=== PATIENT | male | born 1970 | race Caucasian/White ===

== ENCOUNTER 2021-03-20 07:03 | Day surgery (SDC) | payer BC ==
[2021-03-20] MEDS ORDERED: Ringers Lactate 1,000 ML IV ONE (07:06)
[2021-03-20] MEDS ORDERED: LIDOCAINE 1% MPF 5 ML VIAL ONE (07:34)
[2021-03-20] MEDS ORDERED: propofoL 200 MG/20 ML VIAL IV ONE (07:34)
--- NOTE | 2021-03-20 08:28 | ENDO RPT ---
[address], [address] COLONOSCOPY PROCEDURE REPORT EXAM DATE: 03/20/2021 PATIENT NAME: Peewee Foster MR #: [id number] BIRTHDATE: 1970 ATTENDING: Ion Moore DR STATUS: outpatient MARKETING ADMINISTRATIVE ASSISTANT: Bel De La Vega RN INDICATIONS: The patient is a 50 yr old Male here for a colonoscopy due to colon cancer screening and abdominal pain PROCEDURE PERFORMED: Screening Colonoscopy and Colonoscopy MEDICATIONS: Per Anesthesia. ESTIMATED BLOOD LOSS: None CONSENT: The patient understands the risks and benefits of the procedure and understands that these risks include, but are not limited to: sedation, allergic reaction, infection, perforation and/or bleeding. Alternative means of evaluation and treatment include, among others: physical exam, x-rays, and/or surgical intervention. The patient elects to proceed with this endoscopic procedure. DESCRIPTION OF PROCEDURE: During intra-op preparation period all mechanical medical equipment was checked for proper function. Hand hygiene and appropriate measures for infection prevention was taken. Procedure, possible complications, alternatives including, but not limited to possibility of bleeding, perforation, tear, infection, sepsis, need for surgery, need for blood transfusion, were explained to the patient. After the risks, benefits and alternatives of the procedure were thoroughly explained, Informed consent was verified, confirmed and timeout was successfully executed by the treatment team. The patient was placed in the left lateral position. A digital rectal exam was performed and revealed internal hemorrhoids and A digital rectal exam was performed and revealed external hemorrhoids. After appropriate level of anesthesia, the scope was passed. The EC-[id number] ([id number] endoscope was introduced through the anus and advanced to the cecum, which was identified by both the appendix and ileocecal valve. The quality of the prep was fair. The instrument was then slowly withdrawn as the colon was fully examined. Scope withdrawal time was 10 minutes. COLON FINDINGS: Mild diverticulosis was noted in the sigmoid colon and at the cecum. No bleeding was noted from the diverticulosis. Small internal hemorrhoids were found. Retroflexed views revealed no abnormalities. The scope was then completely withdrawn from the patient and the procedure terminated. ADVERSE EVENTS: There were no complications. IMPRESSIONS: 1. Mild diverticulosis was noted in the sigmoid colon and at the cecum 2. Small internal hemorrhoids RECOMMENDATIONS: 1. avoid NSAIDS for 2 weeks 2. Monitor for any evidence of rectal bleeding. 3. yearly hemoquant 4. hemorrhoidal hygiene 5. increase dietary water 6. low fiber / diverticular diet RECALL: Return in 5 year(s) for Colonoscopy. Fecal DNA test in [address] eSigned: Ion Moore DR 03/20/2021 8:28 AM cc: CPT CODES: ICD9 CODES: PATIENT NAME: Peewee Foster MR#: [id number]
[2021-03-20 08:48] VITALS: O2SAT 100
[2021-03-20 09:09] VITALS: BP 99/69; TEMP 97
== END 2021-03-20 09:08 | disposition home or self-care (01) ==
LOC: OR 07:03
PROVIDERS: ATTEND Surgery
PROC: 0DJD8ZZ Inspection of Lower Intestinal Tract, Via Natural or Artificial Opening Endoscopic (ICD-10-PCS; principal; 2021-03-20 08:00)
DX: Z12.11 Encounter for screening for malignant neoplasm of colon (principal); K64.8 Other hemorrhoids; K57.30 Diverticulosis of large intestine without perforation or abscess without bleeding; Z20.822 Contact with and (suspected) exposure to COVID-19
CPT/HCPCS: 82947; 45378; U0003; J2704; J7120